=== PATIENT | male | born 1975 | race Caucasian/White ===

== ENCOUNTER 2016-08-27 11:24 | Emergency (ER) | payer OTHER ==
[~2016-08-27] VITALS: Ht 177.8 cm; Wt 77.7 kg
[2016-08-27 11:26] VITALS: BP 134/90
[2016-08-27] MEDS ORDERED: KETOROLAC 30 MG/1 ML ONE (12:28)
[2016-08-27] MEDS ORDERED: KETOROLAC 30 MG/1 ML IM ONE (12:30)
== END 2016-08-27 12:54 | disposition home or self-care (01) ==
LOC: ED 12:50
DX: S39.012A Strain of muscle, fascia and tendon of lower back, initial encounter (principal); X50.9XXA Other and unspecified overexertion or strenuous movements or postures, initial encounter; Y93.89 Activity, other specified; Y92.89 Other specified places as the place of occurrence of the external cause; Y99.8 Other external cause status
CPT/HCPCS: 96372; 99283; J1885